=== PATIENT | male | born 1970 | race Caucasian/White ===

== ENCOUNTER → 2019-10-19 14:48 | Outpatient (BNVA) | payer MEDICARE, MEDICAID, SELFPAY | PROVIDERS: Family Provider Family Medicine; Visit Provider Nurse Practitioner | DX: F31.4 Bipolar disorder, current episode depressed, severe, without psychotic features (principal) | CPT/HCPCS: 99213 ==

== ENCOUNTER → 2021-07-11 09:32 | Outpatient (BNVA) | payer MEDICARE, MEDICAID, SELFPAY | PROVIDERS: Family Provider Family Medicine; Visit Provider Nurse Practitioner | DX: F31.81 Bipolar II disorder (principal); F10.21 Alcohol dependence, in remission; F17.220 Nicotine dependence, chewing tobacco, uncomplicated | CPT/HCPCS: 99215 ==

== ENCOUNTER → 2021-10-30 13:05 | Outpatient (BNVA) | payer MEDICARE, MEDICAID, SELFPAY | PROVIDERS: Family Provider Family Medicine; Visit Provider Nurse Practitioner | DX: F31.4 Bipolar disorder, current episode depressed, severe, without psychotic features (principal); F17.220 Nicotine dependence, chewing tobacco, uncomplicated; F10.21 Alcohol dependence, in remission | CPT/HCPCS: 99214 ==

== ENCOUNTER → 2021-12-01 14:58 | Outpatient (BNVA) | payer MEDICARE, MEDICAID, SELFPAY | PROVIDERS: Family Provider Family Medicine; Visit Provider Social Worker | DX: F31.4 Bipolar disorder, current episode depressed, severe, without psychotic features (principal); F17.220 Nicotine dependence, chewing tobacco, uncomplicated; F10.21 Alcohol dependence, in remission | CPT/HCPCS: 90837; 90834 ==

== ENCOUNTER → 2021-12-29 14:07 | Outpatient (BNVA) | payer MEDICARE, MEDICAID, SELFPAY | PROVIDERS: Family Provider Family Medicine; Visit Provider Social Worker | DX: F31.81 Bipolar II disorder (principal); F31.4 Bipolar disorder, current episode depressed, severe, without psychotic features | CPT/HCPCS: 90837; 90834 ==

== ENCOUNTER → 2022-01-28 12:32 | Outpatient (BNVA) | payer MEDICARE, MEDICAID, SELFPAY | PROVIDERS: Family Provider Family Medicine; Visit Provider Nurse Practitioner | DX: F31.81 Bipolar II disorder (principal); F17.220 Nicotine dependence, chewing tobacco, uncomplicated; F10.21 Alcohol dependence, in remission | CPT/HCPCS: 99214 ==

== ENCOUNTER → 2022-01-29 13:54 | Outpatient (BNVA) | payer MEDICARE, MEDICAID, SELFPAY | PROVIDERS: Family Provider Family Medicine; Visit Provider Social Worker | DX: F31.81 Bipolar II disorder (principal) | CPT/HCPCS: 90837; 90834 ==

== ENCOUNTER → 2023-09-30 09:32 | Outpatient (BNVA) | payer MEDICARE, MEDICAID, OTHER, SELFPAY | PROVIDERS: Family Provider Family Medicine; PCP Family Medicine; Visit Provider Nurse Practitioner | DX: Z79.899 Other long term (current) drug therapy (principal); F10.21 Alcohol dependence, in remission; F31.81 Bipolar II disorder; F17.220 Nicotine dependence, chewing tobacco, uncomplicated | CPT/HCPCS: 80061; 83036 ==